=== PATIENT | female | born 1945 | race Caucasian/White ===

== ENCOUNTER → 2016-07-27 | Outpatient (CLI) | payer MEDICARE, OTHER ==
--- NOTE | ~2016-07-27 | CT57 ---
[facility] A Service [facility] RADIOLOGY TEXT RESULTS PATIENT: ERIK DANG LOCATION: [facility] : 49 UNIT #: [id number] AGE: [address]: Da Roman SEX: F ORDER DR: [id number] [place] [id number] O MR#: [id number] Acc #: [id number] NAME: ERIK DANG : 1945 SEX: F STUDY DATE/TIME: 07/27/2016 13:48 UNIT: [facility] ROOM: STUDY DESCRIPTION: CT Chest Wo Cont Attending Physician: Da Roman M.D. Referring Physician: Da Roman M.D. Ordering Physician: Staff Doctor Not On Primary Care Physician: Zane Harris M.D. MEDICAL IMAGING REPORT This report is preliminary unless electronic signature is present. EXAM CT of the chest without contrast. INDICATION Follow up lung nodules. TECHNIQUE CT scan of the chest was performed without contrast. Coronal and sagittal reformatted images are obtained. This CT exam was performed with one or more of the following radiation dose reduction techniques: automatic exposure control, adjustment of mA and/or kV according to patient size, and iterative reconstruction. COMPARISON Comparison with 01/02/2016. FINDINGS There are scattered tiny micronodules in the lungs which are stable. No new nodule. No suspicious lymphadenopathy, coronary artery calcification. Limited imaging of the upper abdomen demonstrates a cholecystectomy. Bone windows are unremarkable. IMPRESSION Stable tin micronodules in the lungs. No new nodule. Dictated by... Shawn Carias M.D. THIS IS AN ELECTRONICALLY VERIFIED REPORT Shawn Carias M.D. at 07/28/2016 8:35 AM ARS/jt [facility] A Service [facility] RADIOLOGY TEXT RESULTS PATIENT: ERIK DANG LOCATION: [facility] : 49 UNIT #: [id number] AGE: [address]: Da Roman SEX: F ORDER DR: TD: 07/27/2016 18:36 JOB #: [id number] MEDICAL IMAGING REPORT Page 1 of 1
== END | disposition home or self-care (01) ==
LOC: SCT 11:40
DX: R91.1 Solitary pulmonary nodule (principal); R91.8 Other nonspecific abnormal finding of lung field
CPT/HCPCS: 71250

== ENCOUNTER → 2016-11-20 | Outpatient (CLI) | payer MEDICARE, OTHER ==
[2016-11-20 14:09] LABS: BASOPHIL% 0.5 % (0-2.5); EOSINOPHIL# 0.1 X10e3 (0-0.7); EOSINOPHIL% 1.7 % (0.0-7.0); HEMATOCRIT 39.8 % (35.0-45.0); HEMOGLOBIN 14.2 gm/dL (12.0-16.0); LYMPHOCYTE# 2.5 X10e3 (1.0-3.5); LYMPHOCYTE% 30.9 % (17.0-45.0); MEAN CORPUSCULAR HEMOGLOBIN 30.9 PG (28-34); MEAN CORPUSCULAR HGB CONC 35.6 g/dL (30-36); MEAN PLATELET VOLUME 7.1 FL (6.5-11.5); MONOCYTE# 0.4 X10e3 (0-1.0); NEUTROPHIL# 5.1 X10e3 (1.5-7.1); NEUTROPHIL% 61.9 % (40-75); PLATELET COUNT 193 X10e3 (140-420); RED BLOOD COUNT 4.58 X10e (3.90-5.30); RED CELL DISTRIBUTION WIDTH 14.2 % (11.0-15.5); WHITE BLOOD COUNT 8.2 X10e3 (4.0-10.5)
[2016-11-20 14:41] LABS: DIFF IND NO
[2016-11-20 14:59] LABS: ALBUMIN SERUM 4.3 g/dL (3.5-5.0); BILIRUBIN,TOTAL 0.7 mg/dL (0.2-2.0); BUN/CREATININE RATIO 21.66; CALCIUM SERUM 9.6 mg/dL (8.4-10.2); CREATININE SERUM 1.2 mg/dL (0.6-1.4); GLOM FILT RATE Estimated 46.1 mL/min (>60); POTASSIUM 4.3 mmol/L (3.5-5.1); PROTEIN TOTAL SERUM 6.7 g/dL (6.0-8.3)
[2016-11-20 17:17] LABS: SEDIMENTATION RATE-SW ONLY 14 mm/hr (0-40)
[2016-11-23 11:50] LABS: ANA SCREEN Positive (Negative); ANA TITER COMMENT Has been added (()); NUCLEAR PATTERN (ANA) Speckled (())
== END | disposition home or self-care (01) ==
LOC: SLAB 13:34
PROVIDERS: Internal Medicine
DX: M06.9 Rheumatoid arthritis, unspecified (principal)
CPT/HCPCS: 36415; 80053; 82378; 85025; 85651; 86038; 86039; 86430